=== PATIENT | female | born 1970 | race Caucasian/White ===

== ENCOUNTER 2022-06-05 20:42 | Emergency (ER) | payer BC, OTHER ==
[2022-06-05] MEDS ORDERED: Sodium Chloride 0.9% 10 ML Syringe FLUSH PRN (22:25)
[2022-06-05] MEDS ORDERED: LORazepam 2 MG/ML SDV IVPUSH ONE (22:59)
[2022-06-05] MEDS ORDERED: Ondansetron 4 MG/2 ML SDV IVPUSH ONE (23:10)
[2022-06-05] MEDS ORDERED: Ondansetron 4 MG/2 ML SDV ONE (23:21)
[2022-06-05] MEDS ORDERED: LORazepam 2 MG/ML SDV ONE (23:22)
== END 2022-06-06 07:15 | disposition home or self-care (01) ==
LOC: JD.ED 20:42
DX: R55 Syncope and collapse (principal); R53.1 Weakness; I10 Essential (primary) hypertension; E66.9 Obesity, unspecified; Z68.36 Body mass index [BMI] 36.0-36.9, adult; Z86.16 Personal history of COVID-19
CPT/HCPCS: 36415; 80053; 81001; 83735; 84484; 85025; 85379; 86140; 93005; 96374; 96375; 99284; J2060; J2405; J3490; 70450-26; 71045; 71045-26

== ENCOUNTER 2023-09-02 01:46 | Emergency (ER) | payer BC ==
[2023-09-02 02:35] LABS: BASOPHILS PERCENT AUTO 0.5 % (0.0-1.0); EOSINOPHILS ABSOLUTE AUTO 0.5 K/mm3 (0.0-0.4); EOSINOPHILS PERCENT AUTO 6.8 % (0.0-6.0); HEMATOCRIT 38.1 % (37.0-47.0); IMMATURE GRAN ABSOLUTE AUTO 0.02 K/mm3 (0.00-0.05); IMMATURE GRAN PERCENT AUTO 0.3 % (0.0-0.4); LYMPHOCYTES ABSOLUTE AUTO 1.3 K/mm3 (1.0-4.8); LYMPHOCYTES PERCENT AUTO 17.1 % (24.0-44.0); MEAN CORPUSCULAR HEMOGLOBIN 30.2 pg (28.0-32.0); MEAN CORPUSCULAR HGB CONC 34.1 g/dl (32.0-36.0); MEAN CORPUSCULAR VOLUME 88.4 fl (83.0-99.0); MEAN PLATELET VOLUME 9.5 fl (9.4-12.3); MONOCYTES ABSOLUTE AUTO 0.5 K/mm3 (0.0-0.8); MONOCYTES PERCENT AUTO 6.3 % (0.0-8.0); NEUTROPHILS ABSOLUTE AUTO 5.2 K/mm3 (1.8-7.7); PLATELET COUNT,PLT 351 K/mm3 (150-400); RED BLOOD CELL COUNT 4.31 M/mm3 (4.10-5.30)
[2023-09-02 03:09] LABS: A/G RATIO 0.8 (1-2); ALBUMIN 3.5 g/dl (3.4-5.0); ANION GAP 10.9 (5-15); BILIRUBIN TOTAL 0.5 mg/dL (0.2-1.0); BUN/CREATININE RATIO 21.1 (14-18); C-REACTIVE PROTEIN 2.7 mg/dL (<1.0); CALCIUM 8.9 mg/dL (8.5-10.1); CREATININE 0.9 mg/dL (0.55-1.02); EST CRCL DRUG DOSING (CG) 68.45 mL/min; MAGNESIUM 1.8 mg/dL (1.8-2.4); POTASSIUM,K 2.9 mEq/L (3.5-5.1); PROTEIN TOTAL,TP 7.7 g/dl (6.4-8.2); TSH 2.599 uIU/mL (0.358-3.74)
[2023-09-02] MEDS: Potassium Chloride 20 MEQ Tab.ER PO ONE (03:43)
== END 2023-09-02 04:00 | disposition home or self-care (01) ==
LOC: JD.ED 01:46
DX: S02.2XXA Fracture of nasal bones, initial encounter for closed fracture (principal); S00.83XA Contusion of other part of head, initial encounter; T50.905A Adverse effect of unspecified drugs, medicaments and biological substances, initial encounter; R55 Syncope and collapse; E87.6 Hypokalemia; I10 Essential (primary) hypertension; E66.9 Obesity, unspecified; Z86.16 Personal history of COVID-19; Z68.41 Body mass index [BMI] 40.0-44.9, adult; W13.3XXA Fall through floor, initial encounter
CPT/HCPCS: 36415; 70486; 80053; 83735; 83880; 84443; 84484; 85025; 85379; 86140; 93005; 99284; A9270; 93010